=== PATIENT | male | born 1975 | race Caucasian/White ===

== ENCOUNTER 2019-01-01 13:17 | Emergency (ER) | payer OTHER ==
[~2019-01-01] VITALS: Ht 200.7 cm; Wt 163.7 kg
[2019-01-01 13:25] VITALS: BP 130/77
[2019-01-01] MEDS ORDERED: LIDOCAINE-MPF 1%, 5ML ONE ×2 (13:43)
[2019-01-01] MEDS ORDERED: DIPH,PERTUSS(ACELL),TET VAC/PF 0.5 ML IM-VACC ONE ×2 (13:46→14:00)
[2019-01-01] MEDS ORDERED: LIDOCAINE-MPF 1%, 5ML INFIL ONE (14:00)
[2019-01-01] MEDS ORDERED: BACITRACIN ZINC OINT 500U/GM, 0.9 GM ONE (14:09)
--- NOTE | 2019-01-01 14:16 | NUR ---
Patient/Caregiver given discharge instructions and they have confirmed that they understand the instructions. Patient ambulatory with steady gait. PT LEFT WITH ALL PERSONAL BELONGINGS.
== END 2019-01-01 14:18 | disposition home or self-care (01) ==
LOC: ED 14:12
DX: S81.811A Laceration without foreign body, right lower leg, initial encounter (principal); F32.9 Major depressive disorder, single episode, unspecified; W22.8XXA Striking against or struck by other objects, initial encounter; Y93.89 Activity, other specified; Y92.69 Other specified industrial and construction area as the place of occurrence of the external cause; Y99.0 Civilian activity done for income or pay
CPT/HCPCS: 12032; 90471; 90715; 99284